=== PATIENT | male | born 1940 ===

== ENCOUNTER → 2018-12-14 | Outpatient (CLI) | payer MEDICARE, BC ==
[~2018-12-14] MED LIST: ASPI81EC; ESCI20; EZET10; LOPERAMIDE; OLOP.1OPSO; PROACE100 PO; RANI150; RXPROACE PO; TRIA55OI
[2018-12-14 13:35] LABS: Stool Occult Bld Immuno 1 Positive (NEGATIVE)
== END | disposition home or self-care (01) ==
LOC: LAB 10:16 → LAB SHORT 10:16
PROVIDERS: Nurse Practitioner Family
DX: Z12.11 Encounter for screening for malignant neoplasm of colon (principal)
CPT/HCPCS: G0328

== ENCOUNTER 2024-05-26 04:42 | Emergency (ER) | payer MEDICARE, BC ==
[~2024-05-26] VITALS: Ht 172.7 cm; Wt 99.8 kg
[2024-05-26 05:19] LABS: BASOPHILS ABSOLUTE AUTO 0.02 K/mm3 (0.00-0.23); BASOPHILS PERCENT AUTO 0 % (0-2); EOSINOPHILS ABSOLUTE AUTO 0.04 K/mm3 (0.00-0.68); EOSINOPHILS PERCENT AUTO 1 % (0-6); Hematocrit 44.4 % (37.0-53.0); Hemoglobin 14.9 g/dL (13.5-17.5); IMMATURE GRAN ABSOLUTE AUTO 0.01 K/mm3 (0.00-0.10); IMMATURE GRAN PERCENT AUTO 0 % (0-1); LYMPHOCYTES ABSOLUTE AUTO 2.45 K/mm3 (0.84-5.20); LYMPHOCYTES PERCENT AUTO 42 % (21-46); MONOCYTES PERCENT AUTO 7 % (4-13); Mean Corpuscular HGB 29.7 pg (26.0-34.0); Mean Corpuscular HGB Conc 33.6 g/dL (31.5-36.5); Mean Corpuscular Volume 88 fL (80-100); Mean Platelet Volume 10.5 fL (9.1-12.4); NEUTROPHILS ABSOLUTE AUTO 2.98 K/mm3 (1.96-9.15); NEUTROPHILS PERCENT AUTO 51 % (41-73); Platelet Count 200 K/mm3 (150-400); RDW Coefficient Variation 12.3 % (11.7-14.2); RDW Standard Deviation 40.3 fL (35.1-46.3); Red Blood Cell Count 5.02 M/mm3 (4.30-5.90)
[2024-05-26 05:30] LABS: Albumin, Blood 3.5 g/dL (3.4-5.0); Bilirubin, Total 1.1 mg/dL (0.1-1.0); Bun/Creatinine Ratio 20.8 (12.0-20.0); Calcium, Blood 9.4 mg/dL (8.5-10.1); Creatinine, Blood 1.01 mg/dL (0.60-1.20); Globulin, Blood 3.5 g/dL (2.2-4.0)
[2024-05-26 05:53] LABS: Magnesium, Blood 2.3 mg/dL (1.6-2.4)
[2024-05-26 06:48] LABS: Influenza A, PCR NEGATIVE (NEGATIVE); Influenza B, PCR NEGATIVE (NEGATIVE); Resp Syncytial Virus, PCR NEGATIVE (NEGATIVE); SARS-Cov-2 (COVID-19) PCR, MMC NEGATIVE (NEGATIVE)
[2024-05-26 08:00] VITALS: BP 128/82
== END 2024-05-26 08:18 | disposition home or self-care (01) ==
LOC: ER 04:42
PROVIDERS: Student in an Organized Health Care Education/Training Program
DX: S60.042A Contusion of left ring finger without damage to nail, initial encounter (principal); R53.1 Weakness; R26.9 Unspecified abnormalities of gait and mobility; E78.5 Hyperlipidemia, unspecified; W18.30XA Fall on same level, unspecified, initial encounter; Z79.899 Other long term (current) drug therapy; Z88.5 Allergy status to narcotic agent; Z88.8 Allergy status to other drugs, medicaments and biological substances
CPT/HCPCS: 0241U; 80053; 83735; 84484; 85025; 93005; 93010; 99284-25

== ENCOUNTER 2024-08-23 11:27 | Inpatient (IN) | payer MEDICARE, BC ==
[~2024-08-23] VITALS: Ht 172.7 cm; Wt 90.2 kg
[~2024-08-23 11:27] MED LIST changes: -ASPI81EC; +Aspir 8181 MG PO; -ESCI20; +ESCI20 PO
[2024-08-23 11:46] LABS: PCO2 Arterial 35.7 mmHg (35-45); PO2 Arterial 63.9 mmHg (80-100)
[2024-08-23 11:48] LABS: BASOPHILS ABSOLUTE AUTO 0.02 K/mm3 (0.00-0.23); BASOPHILS PERCENT AUTO 0 % (0-2); EOSINOPHILS ABSOLUTE AUTO 0.02 K/mm3 (0.00-0.68); EOSINOPHILS PERCENT AUTO 0 % (0-6); Hematocrit 42.1 % (37.0-53.0); IMMATURE GRAN ABSOLUTE AUTO 0.05 K/mm3 (0.00-0.10); IMMATURE GRAN PERCENT AUTO 0 % (0-1); LYMPHOCYTES ABSOLUTE AUTO 1.33 K/mm3 (0.84-5.20); LYMPHOCYTES PERCENT AUTO 11 % (21-46); MONOCYTES ABSOLUTE AUTO 0.54 K/mm3 (0.16-1.47); MONOCYTES PERCENT AUTO 4 % (4-13); Mean Corpuscular HGB 29.5 pg (26.0-34.0); Mean Corpuscular HGB Conc 33.3 g/dL (31.5-36.5); Mean Corpuscular Volume 89 fL (80-100); Mean Platelet Volume 10.3 fL (9.1-12.4); NEUTROPHILS ABSOLUTE AUTO 10.74 K/mm3 (1.96-9.15); NEUTROPHILS PERCENT AUTO 84 % (41-73); Platelet Count 162 K/mm3 (150-400); RDW Coefficient Variation 12.2 % (11.7-14.2); RDW Standard Deviation 39.8 fL (35.1-46.3); Red Blood Cell Count 4.75 M/mm3 (4.30-5.90)
[2024-08-23 12:11] LABS: Albumin/Globulin Ratio 0.9 (0.8-1.8); Bilirubin, Total 1.1 mg/dL (0.1-1.0); Calcium, Blood 8.8 mg/dL (8.5-10.1); Creatinine, Blood 0.88 mg/dL (0.60-1.20); Globulin, Blood 3.2 g/dL (2.2-4.0); Potassium, Blood 3.6 mmol/L (3.5-5.5); Total Protein, Blood 6.2 g/dL (6.4-8.2)
[2024-08-23 12:40] LABS: Influenza A, PCR NEGATIVE (NEGATIVE); Influenza B, PCR NEGATIVE (NEGATIVE); Resp Syncytial Virus, PCR NEGATIVE (NEGATIVE); SARS-Cov-2 (COVID-19) PCR, MMC NEGATIVE (NEGATIVE)
[2024-08-23 14:18] LABS: Anti-Xa UFH, PHA Monitoring <0.10 IU/mL; International Normalized Ratio 1.03
[2024-08-23] MEDS ORDERED: LORazepam 1 MG Tab PO PRN (15:05)
[2024-08-23] MEDS ORDERED: Acetaminophen 325 MG TABLET PO PRN (15:05)
[2024-08-23] MEDS ORDERED: FLU VACC TS2024-25(6MOS UP)/PF 45 MCG/0.5 ML SYRINGE IM SCH (15:05)
[2024-08-23] MEDS ORDERED: Prochlorperazine Edisylate 10 mg Vial IV PRN (15:10)
[2024-08-23] MEDS ORDERED: Heparin Sodium 5000 Units/ML 1ML MDV IV STA (15:13)
[2024-08-23 15:38] LABS: Prostate Specific Antigen <0.010 ng/mL (0.000-4.000)
[2024-08-23] MEDS ORDERED: Heparin Sodium,Porcine/0.5 NS 500 ML IV SCH (16:00)
[2024-08-23] MEDS ORDERED: Dose Adjust by Pharmacy XX STA ×3 (16:01→23:37)
[2024-08-23 17:13] VITALS: BP 124/78
--- NOTE | 2024-08-23 18:30 | NUR ---
PCU Admit / End of Shift Pt brought to PCU-18 by artis from ER @ 1715. Pt A&O x3. Pt wearing 15L NRB upon arrival. Pt slid over from [facility] to PCU bed by 4 staff. RT transitioned pt to airvo: 60L 84%. Pt spo2 > 92%. Monitor showing ST, HR 100-110. Heparin gtt infusing per emar upon arrival to unit. Verified heparin gtt. Pt reports using a wheelchair for mobility at baseline d/t "I don't trust myself." Pt inconsistent when providing history. When asking pt admit history questions, asked pt if tobacco use, pt stating "Yes. I love cigarettes. I don't smoke though." When asking pt when he quit pt then just reminiscing & not answering questions. When asking pt about alcohol use, pt stating "Yeah I love alcohol! I drink beer. I used to drink wine but I liked it too much. I don't drink beer anymore." Pt did not answer when last drink was or how much he drank. When asking pt questions pt responding w/ answers for "my neighbor.." or "my .." or other people. Pt having to be redirected in conversation repeatedly.
[2024-08-23] MEDS ORDERED: NS 250 ML IV ONE (19:53)
[2024-08-23] MEDS ORDERED: Heparin Sodium 1000 Units/ML 10ML MDV ONE ×3 (19:53→21:24)
[2024-08-23] MEDS ORDERED: NS 1,000 ML IV ONE ×3 (19:53→21:24)
[2024-08-23 19:57] VITALS: BP 105/83
--- NOTE | 2024-08-23 20:06 | NUR ---
UPDATE DR. DELEON, INTERVENTIONAL RADIOLOGIST AT BEDSIDE SPEAKING WITH PATIENT ABOUT THROMBECTOMY. HEART CENTER STAFF IN ROOM TO ATTEMPT TO BRING PATIENT BACK TO PROCEDURES. PATIENT CURRENTLY ON AIRVO, 60l 84% FIO2. NO RT AVAILABLE TO CHANGE O2 DELIVERY AT THIS TIME. THIS RN TO CALL HEART CENTER STAFF WHEN RT IS AVAILABLE.
--- NOTE | 2024-08-23 20:27 | NUR ---
PROCEDURE PATIENT TO PUBLIC HEALTH REPRESENTATIVE. PATIENT TOLERATING 15L HI FLOW NC. AIRVO TRANSPORTED TO PUBLIC HEALTH REPRESENTATIVE AND SET UP.
[2024-08-23] MEDS ORDERED: Midazolam HCl 1MG / ML 2ML Vial ONE (20:35)
[2024-08-23] MEDS ORDERED: FentaNYL Citrate 50 MCG/ML 2 ML Injection ONE (20:36)
[2024-08-23] MEDS ORDERED: Ondansetron HCl 2 MG / ML 2ML Vial ONE (20:46)
[2024-08-23] MEDS ORDERED: Famotidine 20 MG Tab PO SCH (21:00)
[2024-08-23] MEDS ORDERED: Naloxone HCl 0.4MG / ML 1ML Vial ONE (21:13)
[2024-08-23 22:15] VITALS: BP 124/94
--- NOTE | 2024-08-23 22:19 | NUR ---
UPDATE PATIENT BACK INTO ROOM FROM THROMBECTOMY. AND FRIEND AT BEDSIDE. DR. DELEON UPDATED . BP STABLE. FIO2 TITRATED, 60L 60% FIO2, SPO2 >95%. WILL TITRATE O2 TOLERATED. ORDERS FOR HEPARIN GTT TO CONTINUE. RIGHT GROIN SITE WITH MINIMAL DRAINAGE, TENDER ON PALPATION, PURSE STRINGS IN PLACE.
[2024-08-23 23:08] VITALS: BP 109/65
[2024-08-24 03:14] VITALS: BP 90/75
[2024-08-24 04:06] LABS: BASOPHILS ABSOLUTE AUTO 0.03 K/mm3 (0.00-0.23); BASOPHILS PERCENT AUTO 0 % (0-2); EOSINOPHILS ABSOLUTE AUTO 0.02 K/mm3 (0.00-0.68); EOSINOPHILS PERCENT AUTO 0 % (0-6); Hematocrit 38.9 % (37.0-53.0); Hemoglobin 12.5 g/dL (13.5-17.5); IMMATURE GRAN ABSOLUTE AUTO 0.04 K/mm3 (0.00-0.10); IMMATURE GRAN PERCENT AUTO 0 % (0-1); LYMPHOCYTES ABSOLUTE AUTO 2.36 K/mm3 (0.84-5.20); LYMPHOCYTES PERCENT AUTO 25 % (21-46); MONOCYTES ABSOLUTE AUTO 0.54 K/mm3 (0.16-1.47); MONOCYTES PERCENT AUTO 6 % (4-13); Mean Corpuscular HGB 28.9 pg (26.0-34.0); Mean Corpuscular HGB Conc 32.1 g/dL (31.5-36.5); Mean Corpuscular Volume 90 fL (80-100); Mean Platelet Volume 10.3 fL (9.1-12.4); NEUTROPHILS ABSOLUTE AUTO 6.46 K/mm3 (1.96-9.15); NEUTROPHILS PERCENT AUTO 68 % (41-73); Platelet Count 172 K/mm3 (150-400); RDW Coefficient Variation 12.4 % (11.7-14.2); RDW Standard Deviation 40.7 fL (35.1-46.3); Red Blood Cell Count 4.32 M/mm3 (4.30-5.90); White Blood Cell Count 9.45 K/mm3 (4.00-11.30)
[2024-08-24 04:30] LABS: Calcium, Blood 8.5 mg/dL (8.5-10.1); Creatinine, Blood 0.79 mg/dL (0.60-1.20); Potassium, Blood 3.8 mmol/L (3.5-5.5)
--- NOTE | 2024-08-24 05:34 | NUR ---
SHIFT SUMMARY PATIENT ALERT, ORIENTED x3-4. FORGETFUL AT TIMES. PATIENT UNDERWENT THROMBECTOMY THIS SHIFT. TITRATED TO 4L NC, SPO2 >90%. ON TELE, SR DURING THE NIGHT. DENIES CHEST PAIN OR SHORTNESS OF BREATH. RIGHT GROIN SITE WITH MINIMAL DRAINAGE. SOFT, NO HEMATOMA NOTED. PURSE STRINGS IN PLACE. PATIENT TOLERATING SIPS OF LIQUID POST PROCEDURE. PUREWICK IN PLACE, DARK YELLOW URINE OUT. NO OTHER CHANGES SINCE PREVIOUS NOTES. WILL REPORT TO DAY SHIFT RN.
[2024-08-24] MEDS ORDERED: Dose Adjust by Pharmacy XX STA ×3 (08:29→23:56)
[2024-08-24 09:00] VITALS: BP 121/63
[2024-08-24] MEDS ORDERED: Citalopram Hydrobromide 20 MG Tab PO SCH (09:00)
[2024-08-24 11:36] VITALS: BP 117/65
--- NOTE | 2024-08-24 14:00 | NUR ---
APS AT BEDSIDE EDUARDO SWANSON FROM, [facility] [phone] ARRIVED ON UNIT TO ASSESS PT. PROVIDED REQUESTED INFORMATION AND INTRODUCED TO PATIENT FOR INTERVIEW.
[2024-08-24 16:03] VITALS: BP 119/65
--- NOTE | 2024-08-24 18:45 | NUR ---
SHIFT SUMMARY PATIENT ALERT AND ORIENTED X 3-4. UNABLE TO MAKE HIS NEEDS KNOWN CONSISTENTLY HE DID NOT USE HIS CALL LIGHT TODAY. EASILY BECOMES FLUSTERED AND CONFUSED IF TOO MUCH ACTIVITY IN ROOM AND UNABLE TO UNDERSTAND CONVERSATION. HARD OF HEARING BUT ALSO SLOW PROCESSING. CARDIAC: SINUS ARRYTHMIA HR 80S. LUNGS:CLEAR DIM GI: +CONSTIPATION, REFUSED TO SIT ON COMMODE TODAY : DARK YELLOW URINE, USING MALE PUREWICK MOBILTY: UP TO CHAIR TODAY WITH PT. REQUIRES TIME AND CARE TO CUE FOR TRANSFERS. MUCH ENCOURAGEMENT NEEDED. PT DID A FEW SIT TO STANDS AT BEDSIDE, WEAK REQUIRED MIN ASSIST WITH SIT TO STANDS BUT TIRED QUICKLY. R GROIN SITE, SOFT/NON TENDER, NO VISIBLE HEMATOMA SOME MINMAL BLOOD PRESENT AT SITE PRIOR TO MY SHIFT IS UNCHANGED. FLOW STASIS IN PLACE. FAMILY - AND NEIGHBOR INTO VISIT TODAY
[2024-08-24 19:19] VITALS: BP 139/85
[2024-08-24] MEDS ORDERED: Melatonin 5 MG Tablet PO PRN (19:25)
[2024-08-24 23:01] VITALS: BP 139/81
--- NOTE | 2024-08-25 05:27 | NUR ---
SHIFT SUMMARY PATIENT ALERT AND ORIENTED x2-3. ABLE TO MAKE NEEDS KNOWN TO STAFF. BP STABLE. PATIENT REMAINED ON RA WITH SPO2 >90%. TELE READING SR. PATIENT 2 PERSON ASSIST TO BEDSIDE COMMODE. NO BM THIS SHIFT. RIGHT GROIN SITE C/D/I. NO HEMATOMA NOTED. PURSE STRINGS IN PLACE. NO OTHER CHANGES DURING THE NIGHT, WILL REPORT TO DAY SHIFT RN.
[2024-08-25] MEDS ORDERED: Dose Adjust by Pharmacy XX STA (05:47)
[2024-08-25 05:55] VITALS: BP 112/66
[2024-08-25 06:19] LABS: Hematocrit 33.9 % (37.0-53.0); Mean Platelet Volume 10.7 fL (9.1-12.4); Platelet Count 169 K/mm3 (150-400)
[2024-08-25 07:22] VITALS: BP 122/66
--- NOTE | 2024-08-25 07:29 | NUR ---
AM NOTE PT ALERT, ORIENTED X3, CALM AND COOPERATIVE WIHT CARE. PT RESTING IN BED, UP WITH 2 PERSON ASSIST. PT DENIES PAIN, CHEST PAIN/PRESSURE, SOB, NAUSEA, DIZZINESS AND NUMB/TINGLING. HEPARIN GTT PER ORDERS. RIGHT GROIN SITE HAS CLOSURE DEVICE STILL IN PLACE, WITH TEGADERM OVERTOP. DISCUSSED WITH THIS AM, PLANS TO REMOVE AND USE TEGADERM WITH GARRICK TO COVER SITE. SPO2 >90% ON RA, BREATHING EVEN AND UNLABORED, LS CLEAR T/O. TELE SINUS 60'S, BP STABLE. ABD SOFT, NONTENDER, +BT T/O; PT REPORTS FEELING CONSTIPATAED. OTHER VSS. NO OTHER ACUTE CHANGES NOTED. WILL CONTINUE TO MONITOR.
--- NOTE | 2024-08-25 09:54 | NUR ---
Removed closure device and placed gauze and tegaderm; small amount of bruising located in groin but soft, nontender. Report given to Vincent assuming care of patient.
[2024-08-25 11:56] VITALS: BP 130/72
[2024-08-25] MEDS ORDERED: FAMO20 PO (14:11)
[2024-08-25] MEDS ORDERED: XARELTO20 MG PO (14:12)
--- NOTE | 2024-08-25 15:45 | NUR ---
DISCHARGE SUMMARY PT A&Ox3-4, CALLS AND COMMUNICATES NEEDS APPROPRIATELY. FORGETFUL AT TIMES. BP STABLE, SINUS 80's, DENIES CP/PRESSURE. SpO2> 92% RA, DENIES SOB. 1 ASSIST TO CHAIR. DISCHARGE INSTRUCTIONS PROVIDED WITH FAMILY AT BEDSIDE. ALL PT BELONGINGS GATHERED. PT TAKEN OUT VIA WHEELCHAIR AT APPROXIMATELY 1510 BY CLINICAL STAFF MEMBER.
== END 2024-08-25 15:19 | disposition home health service (06) | DRG 163 ==
LOC: ER 11:27 → PCU 15:04
PROVIDERS: Emergency Medicine; Student in an Organized Health Care Education/Training Program; ADMIT Internal Medicine
PROC: X2CY3T7 Extirpation of Matter from Great Vessel using Computer-aided Mechanical Aspiration, Percutaneous Approach, New Technology Group 7 (ICD-10-PCS; principal; 2024-08-23)
DX: I26.92 Saddle embolus of pulmonary artery without acute cor pulmonale (principal); J96.01 Acute respiratory failure with hypoxia; K21.9 Gastro-esophageal reflux disease without esophagitis; Z66 Do not resuscitate; F32.A Depression, unspecified; F41.0 Panic disorder [episodic paroxysmal anxiety]; E78.5 Hyperlipidemia, unspecified; F17.210 Nicotine dependence, cigarettes, uncomplicated; Z88.5 Allergy status to narcotic agent; Z85.46 Personal history of malignant neoplasm of prostate; Z79.899 Other long term (current) drug therapy; Z79.82 Long term (current) use of aspirin; Z85.828 Personal history of other malignant neoplasm of skin
CPT/HCPCS: 0241U; 36415; 36600; 70450; 71045; 71260; 76937; 80048; 80053; 82803; 83880; 84153; 84484; 85014; 85018; 85025; 85049; 85379; 85520; 85610; 85730; 93005; 93010; 93306; 94762; 97110; 97162; 97530; 99152; 99153; 99285-25; A9270; C1725; C1757; C1769; C1894; J1644; J2250; J2310; J2405; J3010; J7030; J7050; Q9967

== ENCOUNTER → 2024-09-22 | Outpatient (CLI) | payer MEDICARE, BC ==
[~2024-09-22] MED LIST changes: +FAMO20 PO; +XARELTO20 MG PO
[2024-09-22 13:27] LABS: Albumin, Blood 2.8 g/dL (3.4-5.0); Albumin/Globulin Ratio 0.8 (0.8-1.8); Bilirubin, Total 0.3 mg/dL (0.1-1.0); Bun/Creatinine Ratio 12.2 (12.0-20.0); Creatinine, Blood 0.82 mg/dL (0.60-1.20); Globulin, Blood 3.4 g/dL (2.2-4.0); Potassium, Blood 3.3 mmol/L (3.5-5.5); Total Protein, Blood 6.2 g/dL (6.4-8.2)
== END ==
LOC: LAB SHORT 11:07 → LAB 11:07
PROVIDERS: Student in an Organized Health Care Education/Training Program
DX: E78.2 Mixed hyperlipidemia (principal); D50.8 Other iron deficiency anemias; I26.92 Saddle embolus of pulmonary artery without acute cor pulmonale; Z79.01 Long term (current) use of anticoagulants
CPT/HCPCS: 80053; 82728; 83540; 83550